=== PATIENT | male | born 1985 | race African-American/Black ===

== ENCOUNTER 2020-04-24 15:29 | Emergency (ER) | payer OTHER ==
--- NOTE | 2020-04-24 17:27 | RAD ---
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 No acute fracture or dislocation is seen. No evidence of hardware loosening is seen.
== END 2020-04-24 17:20 | disposition home or self-care (01) ==
LOC: ERS 15:29
DX: M25.551 Pain in right hip (principal); Z71.6 Tobacco abuse counseling; J45.909 Unspecified asthma, uncomplicated; F17.210 Nicotine dependence, cigarettes, uncomplicated; Z79.899 Other long term (current) drug therapy

== ENCOUNTER 2022-03-29 19:26 | Inpatient (IN) | payer OTHER, SELFPAY ==
[~2022-03-29 19:26] MED LIST: Iopamidol-370 76% 500 ML 1 ML ONE
[2022-03-29] MEDS ORDERED: Boostrix 0.5 ML (Tdap) VIAL (>/=7 yrs of age) ONE (19:42)
[2022-03-29] MEDS ORDERED: CEFAZOLIN 1 GM VIAL ONE (19:42)
[2022-03-29 20:08] LABS: #Basophils 0.1 thou/uL (0.0-0.2); #Eosinphils 0.1 thou/uL (0.0-0.7); #Lymphocytes 4.7 thou/uL (1.20-3.40); #Monocytes 0.9 thou/uL (0.11-0.59); #Neutrophils 7.1 thou/uL (1.40-6.50); %Basophils 0.5 % (0.0-1.0); %Eosinophils 0.9 % (0.0-10.0); %Lymphocytes 36.5 % (21.0-51.0); %Neutrophils 55.1 % (42.0-75.0); Hemoglobin 16.1 g/dL (14.0-18.0); Mean Corpuscular HGB CONC 33.2 g/dL (32.0-36.0); Mean Corpuscular Hemoglobin 30.1 pg (27.0-31.0); Mean Corpuscular Volume 90.5 fL (78.0-98.0); Mean Platelet Volume 7.8 fL (7.4-10.4); Platelet Count 266 thou/uL (130-400); RBC Distribution Width 13.6 % (11.5-14.5); Red Blood Cell (RBC) Count 5.37 mill/uL (4.70-6.10); White Blood Cell (WBC) Count 12.8 thou/uL (4.8-10.8)
[2022-03-29 20:33] LABS: ALT (SGPT) 17 U/L (8-55); AST (SGOT) 27 U/L (5-34); Albumin 4.5 g/dL (3.5-5.0); Alcohol 11 mg/dL (Less than 10); Alkaline Phosphatase 95 U/L (40-110); Anion Gap 23 mmol/L (10-20); BUN (Urea Nitrogen) 13 mg/dL (8.9-20.6); Bilirubin, Total 0.8 mg/dL (0.2-1.2); CK (CPK) 242 U/L (30-200); Calc. Creatinine Clearance 0 mL/min (70-130); Calcium 9.7 mg/dL (7.8-10.44); Carbon Dioxide 16 mmol/L (22-29); Chloride 107 mmol/L (98-107); Estimated GFR 61; Globulin 3.4 g/dL (2.4-3.5); Glucose 109 mg/dL (70-105); Potassium 3.8 mmol/L (3.5-5.1); Protein, Total 7.9 g/dL (6.0-8.3); Sodium 142 mmol/L (136-145)
[2022-03-29 20:43] LABS: SARS-CoV-2 NAA Rapid Test Not Detected (NotDetected)
[2022-03-29] MEDS ORDERED: Lidocaine 1% PF 5 ML VIAL ONE (21:20)
[2022-03-29] MEDS ORDERED: fentaNYL Citrate/PF 100 MCG/2 ML SYRINGE ONE (21:22)
[2022-03-29] MEDS ORDERED: Bacitracin 1 PK ONE (21:50)
[2022-03-29] MEDS ORDERED: Succinylcholine 200 MG/10 ml SYRINGE FS ONE (22:05)
[2022-03-29] MEDS ORDERED: PROPOFOL 200 MG/20 ML VIAL ONE (22:05)
[2022-03-29] MEDS ORDERED: Lidocaine 1% MPF 2 ML VIAL ONE (22:05)
[2022-03-29] MEDS ORDERED: Ondansetron PF 4 MG/2 ML Vial IVP PRN (22:06)
[2022-03-29] MEDS ORDERED: hydrALAZINE 20 MG/ML VIAL SLOW IVP PRN (22:06)
[2022-03-29] MEDS ORDERED: Dextrose 5% in Water 1,000 ML IV PRN (22:06)
[2022-03-29] MEDS ORDERED: Morphine 4 MG/ML VIAL SLOW IVP PRN (22:06)
[2022-03-29] MEDS ORDERED: Dextrose 50% Abboject 50 ML SYRINGE SLOW IVP PRN (22:06)
[2022-03-29] MEDS ORDERED: traMADol HCl 50 MG TAB PO PRN (22:09)
[2022-03-29] MEDS ORDERED: Cyclobenzaprine 10 MG TAB PO PRN (22:09)
[2022-03-29] MEDS ORDERED: Sodium Chloride 0.9% 1,000 ML IV SCH (22:15)
[2022-03-29] MEDS ORDERED: Ondansetron HCl/PF 4 MG/2 ML Vial IVP PRN (22:55)
[2022-03-29] MEDS ORDERED: Promethazine HCl 25 MG/ML VIAL IVPB PRN (22:55)
[2022-03-29] MEDS ORDERED: Promethazine HCl 25 MG/ML VIAL IM PRN (22:55)
[2022-03-29] MEDS ORDERED: PACU-Morphine 4MG/ML VIAL SLOW IVP PRN (22:55)
[2022-03-29] MEDS ORDERED: HYDROmorphone 2 MG/ML VIAL SLOW IVP PRN (22:55)
[2022-03-30] MEDS: traMADol HCl 50 MG TAB PO PRN ×2 (00:49→06:28)
[2022-03-30] MEDS: Acetaminophen 500 MG TAB PO SCH ×5 (00:50→23:42)
[2022-03-30 01:17] VITALS: BMI 39.8
[2022-03-30 05:25] LABS: Bacteria/HPF None Seen HPF (None Seen); Bilirubin Negative (Negative); Blood, Urine Negative (Negative); Clarity Clear (Clear); Glucose, Urine (Dipstick) Normal (Negative); Ketone, Urine 10 mg/dL (Negative); Leukocyte Negative Leu/uL (Negative); Mucous/LPF Rare LPF (<2+); Nitrite Negative (Negative); Protein, Urine (Dipstick) 50 mg/dL (Neg-Trace); RBC/HPF 0-3 HPF (0-3); Squamous Epithelial 0-3 HPF (0-3); Urobilinogen Normal mg/dL (Less than 2); WBC/HPF 0-3 HPF (0-3); pH, Urine 5.5 (5.0-9.0)
[2022-03-30 05:26] LABS: Specific Gravity, Urine 1.045 (1.002-1.036)
[2022-03-30 05:27] LABS: Urine Culture Reflex No No
[2022-03-30 05:28] LABS: Amphetamine Not Detected (NotDetected); Barbiturates Screen Not Detected (NotDetected); Benzodiazepine Screen Not Detected (NotDetected); Cocaine Metabolite Screen Not Detected (NotDetected); Methadone Not Detected (NotDetected); Methamphetamine Not Detected (NotDetected); Opiate Screen Detected (NotDetected); Oxycodone Screen Not Detected (NotDetected); Phencyclidine (PCP) Detected (NotDetected); THC/Cannabinoid Screen Not Detected (NotDetected); Tricyclic Screen Not Detected (NotDetected)
[2022-03-30 06:02] LABS: #Lymphocytes 1.6 thou/uL (1.20-3.40); #Monocytes 1.1 thou/uL (0.11-0.59); #Neutrophils 12.9 thou/uL (1.40-6.50); %Basophils 0.1 % (0.0-1.0); %Eosinophils 0.1 % (0.0-10.0); %Lymphocytes 10.2 % (21.0-51.0); %Monocytes 6.8 % (0.0-10.0); %Neutrophils 82.8 % (42.0-75.0); Hemoglobin 12.5 g/dL (14.0-18.0); Mean Corpuscular HGB CONC 33.1 g/dL (32.0-36.0); Mean Corpuscular Volume 90.7 fL (78.0-98.0); Mean Platelet Volume 7.9 fL (7.4-10.4); Platelet Count 186 thou/uL (130-400); RBC Distribution Width 13.4 % (11.5-14.5); Red Blood Cell (RBC) Count 4.17 mill/uL (4.70-6.10); White Blood Cell (WBC) Count 15.6 thou/uL (4.8-10.8)
[2022-03-30 06:15] LABS: Anion Gap 15 mmol/L (10-20); BUN (Urea Nitrogen) 11 mg/dL (8.9-20.6); Calc. Creatinine Clearance 177 mL/min (70-130); Calcium 8.2 mg/dL (7.8-10.44); Carbon Dioxide 18 mmol/L (22-29); Chloride 110 mmol/L (98-107); Estimated GFR 90; Glucose 102 mg/dL (70-105); Magnesium 1.7 mg/dL (1.6-2.6); Phosphorus 2.6 mg/dL (2.3-4.7); Potassium 4.7 mmol/L (3.5-5.1); Sodium 138 mmol/L (136-145)
[2022-03-30] MEDS: Enoxaparin Sodium 40 MG/0.4 ML SYRINGE SC SCH (09:29)
[2022-03-30] MEDS: Gabapentin 300 MG CAP PO SCH ×3 (09:30→20:58)
[2022-03-30] MEDS: Polyethylene Glycol 3350 17 GM Packet PO SCH (09:31)
[2022-03-30] MEDS: Senokot S 8.6-50 MG TAB PO SCH ×2 (09:31→20:51)
[2022-03-30] MEDS: Famotidine 20 MG TAB PO SCH ×2 (09:31→20:51)
[2022-03-30] MEDS ORDERED: Ibuprofen 800 MG TAB PO PRN (10:53)
[2022-03-30] MEDS: traMADol HCl 50 MG TAB PO SCH ×3 (11:54→23:42)
[2022-03-30] MEDS: Bacitracin 1 PK TOP SCH ×2 (11:55→20:51)
[2022-03-30] MEDS: Ibuprofen 200 MG TAB PO PRN (15:38)
[2022-03-31] MEDS: Acetaminophen 500 MG TAB PO SCH ×4 (05:31→23:58)
[2022-03-31] MEDS: traMADol HCl 50 MG TAB PO SCH ×4 (05:31→20:55)
[2022-03-31 05:49] LABS: #Eosinphils 0.3 thou/uL (0.0-0.7); #Monocytes 0.9 thou/uL (0.11-0.59); #Neutrophils 8.3 thou/uL (1.40-6.50); %Basophils 0.4 % (0.0-1.0); %Eosinophils 2.5 % (0.0-10.0); %Lymphocytes 17.5 % (21.0-51.0); %Monocytes 7.6 % (0.0-10.0); Hemoglobin 12.1 g/dL (14.0-18.0); Mean Corpuscular HGB CONC 32.7 g/dL (32.0-36.0); Mean Corpuscular Hemoglobin 29.7 pg (27.0-31.0); Mean Corpuscular Volume 90.7 fL (78.0-98.0); Mean Platelet Volume 7.6 fL (7.4-10.4); Platelet Count 180 thou/uL (130-400); RBC Distribution Width 13.4 % (11.5-14.5); Red Blood Cell (RBC) Count 4.09 mill/uL (4.70-6.10); White Blood Cell (WBC) Count 11.5 thou/uL (4.8-10.8)
[2022-03-31] MEDS: Senokot S 8.6-50 MG TAB PO SCH ×2 (08:27→20:54)
[2022-03-31] MEDS: Ibuprofen 200 MG TAB PO PRN (08:27)
[2022-03-31] MEDS: Polyethylene Glycol 3350 17 GM Packet PO SCH (08:28)
[2022-03-31] MEDS: Enoxaparin Sodium 40 MG/0.4 ML SYRINGE SC SCH (08:28)
[2022-03-31] MEDS: Bacitracin 1 PK TOP SCH ×3 (08:28→20:56)
[2022-03-31] MEDS: Famotidine 20 MG TAB PO SCH ×2 (08:28→20:55)
[2022-03-31] MEDS: Gabapentin 300 MG CAP PO SCH ×3 (09:25→20:56)
[2022-04-01] MEDS: Acetaminophen 500 MG TAB PO SCH ×2 (05:08→11:56)
[2022-04-01] MEDS: traMADol HCl 50 MG TAB PO SCH ×2 (05:08→11:57)
[2022-04-01] MEDS: Gabapentin 300 MG CAP PO SCH ×2 (08:50→16:08)
[2022-04-01] MEDS: Enoxaparin Sodium 40 MG/0.4 ML SYRINGE SC SCH (08:50)
[2022-04-01] MEDS: Famotidine 20 MG TAB PO SCH (08:50)
[2022-04-01] MEDS: Bacitracin 1 PK TOP SCH ×2 (08:50→16:08)
[2022-04-01] MEDS: Polyethylene Glycol 3350 17 GM Packet PO SCH (08:53)
[2022-04-01] MEDS: Senokot S 8.6-50 MG TAB PO SCH (08:53)
[2022-04-01 16:08] VITALS: BP 147/80; TEMP 98.9
== END 2022-04-01 16:48 | disposition home or self-care (01) | DRG 560 ==
LOC: ERS 19:26 → SDC/OP 22:02 → SURG A 23:58
PROVIDERS: ADMIT Surgery; ATTEND Surgery
PROC: 0SS9XZZ Reposition Right Hip Joint, External Approach (ICD-10-PCS; principal; 2022-03-29)
DX: T84.020A Dislocation of internal right hip prosthesis, initial encounter (principal); N17.9 Acute kidney failure, unspecified; S32.2XXA Fracture of coccyx, initial encounter for closed fracture; S81.811A Laceration without foreign body, right lower leg, initial encounter; Z96.641 Presence of right artificial hip joint; F17.210 Nicotine dependence, cigarettes, uncomplicated; G89.11 Acute pain due to trauma; Z20.822 Contact with and (suspected) exposure to COVID-19
CPT/HCPCS: 36415; 70450; 71045; 71260; 72125; 72170; 74177; 80048; 80053; 80306; 80307; 81001; 82550; 83605; 83735; 84100; 85025; 90471; 90715; 96361; 96374; G0390; J0690; J1650; J2270; J2704; J7050; Q9967; U0002